=== PATIENT | male | born 2000 | race Caucasian/White ===

== ENCOUNTER 2022-01-10 00:14 | Emergency (ER) | payer OTHER ==
[2022-01-10 00:37] VITALS: BP 112/76; PULSE 78; TEMP 98.4; BMI 17.4
[2022-01-10] MEDS ORDERED: CEPHALEXIN MONOHYDRATE 500 MG CAPSULE (UD) PO ONE (00:55)
[2022-01-10] MEDS ORDERED: CEPHALEXIN MONOHYDRATE 500 MG CAPSULE (UD) ONE (01:07)
== END 2022-01-10 01:12 | disposition home or self-care (01) ==
LOC: JER 00:14
DX: L03.031 Cellulitis of right toe (principal)
CPT/HCPCS: 99283-25

== ENCOUNTER 2023-01-07 15:18 | Emergency (ER) | payer OTHER ==
[2023-01-07 15:34] VITALS: BP 101/63; PULSE 61; RESP 16; TEMP 97.8; BMI 18.7
[2023-01-07] MEDS ORDERED: ACETAMINOPHEN 500 MG TABLET (FP) PO ONE (16:09)
[2023-01-07] MEDS ORDERED: ACETAMINOPHEN 500 MG TABLET (FP) ONE (16:18)
[2023-01-07] MEDS ORDERED: KETOROLAC TROMETHAMINE 30 MG/1 ML VIAL IM ONE (16:23)
[2023-01-07] MEDS ORDERED: KETOROLAC TROMETHAMINE 30 MG/1 ML VIAL ONE (16:41)
== END 2023-01-07 19:26 | disposition home or self-care (01) ==
LOC: JERFT 15:18
PROC: 3E0233Z Introduction of Anti-inflammatory into Muscle, Percutaneous Approach (ICD-10-PCS; principal; 2023-01-07)
DX: R51.9 Headache, unspecified (principal); G47.09 Other insomnia
CPT/HCPCS: 99284-25

== ENCOUNTER 2023-02-06 12:33 | Emergency (ER) | payer OTHER ==
[2023-02-06 12:43] VITALS: BP 117/62; PULSE 70; RESP 18; TEMP 98.3; BMI 24.0
[2023-02-06 14:00] LABS: POTASSIUM 4.1 mmol/L (3.5-5.1)
[2023-02-06 14:02] LABS: CALCIUM 9.2 mg/dL (8.5-10.1)
[2023-02-06 14:03] LABS: ALBUMIN 4.1 g/dl (3.4-5.0); BLOOD UREA NITROGEN 14.4 mg/dL (7-18)
[2023-02-06 14:06] LABS: CREATININE 0.7 mg/dL (0.55-1.3)
[2023-02-06 14:07] LABS: TOT PROT 7.8 g/dl (6.4-8.2)
[2023-02-06 14:08] LABS: BILIRUBIN,TOTAL 0.7 mg/dL (0.2-1)
== END 2023-02-06 14:56 | disposition home or self-care (01) ==
LOC: JERFT 12:33
DX: R21 Rash and other nonspecific skin eruption (principal); L29.9 Pruritus, unspecified; B86 Scabies; F42.4 Excoriation (skin-picking) disorder
CPT/HCPCS: 36415; 80053; 99283-25

== ENCOUNTER 2024-07-23 13:24 | Emergency (ER) | payer OTHER ==
[2024-07-23 14:11] VITALS: BP 127/72; PULSE 116; RESP 20; TEMP 99.3; BMI 18.4
[2024-07-23] MEDS ORDERED: ONDANSETRON *ODT* 4 MG TABLET ONE (15:07)
[2024-07-23] MEDS: ONDANSETRON *ODT* 4 MG TABLET SL ONE (15:10)
[2024-07-24 19:58] LABS: HIV INTERPRETATION NEGATIVE (NEGATIVE)
== END 2024-07-23 15:13 | disposition home or self-care (01) ==
LOC: JER 13:24
DX: J11.1 Influenza due to unidentified influenza virus with other respiratory manifestations (principal); R11.2 Nausea with vomiting, unspecified
CPT/HCPCS: 36415; 86803; 87389; 99283-25; Q0162